=== PATIENT | male | born 1995 ===

== ENCOUNTER 2025-02-05 13:11 | Outpatient (AMB) | payer OTHER, SELFPAY ==
--- NOTE | 2025-02-05 13:20 | A.OFFPC_ITS ---
Vital Signs 02/05/25 13:46 Height 5 ft 10.87 in Weight 195 lb BMI 27.3 BP 104/62 Blood Pressure Location Rt brachial Position Sitting Respiration 16 Pulse 67 Pulse Source Pulse Oximeter Temp 97.9 F Temp Source Temporal Artery Scan Pulse Oximetry (%) 98 Oxygen Delivery Method Room Air Intake Visit Reasons: EST CARE/STOMACH CONCERNS Intake Note: Wendy presents in the office today to establish care. Has stomach concerns. Seat Installer Name: Feliciano Carter [id number] Allergies lactose Allergy (Verified 02/05/25 13:38) Abdominal Pain Tobacco use date assessed: 02/05/25 Dental Screening Dental Screen Date: 02/05/25 Did you have a dental visit in the last 12 months?: Yes Did you have a dental problem in the last 6 months where you did not have access to dental care?: No Was dental information given to patient?: Patient has dentist HPI HPI Comments History of Present Illness Details 30-year-old Occitan speaking male presen to establish care. Relocated from [place] to [facility] 2 years ago. Prior PCP? - [place] established care [place] the [place]. Acute issue(s) - Reports bloating after eating and drin karen water for the past 1 year. Reports occasional burning epigastric pain after eating.He notes diarrhea a few times monthly; otherwise, his bowel movements are regular. He notes occasional abdomi nal pain. No acute symptoms at this time. Past Medical History - Gastric ulcer: was on abx x 6 months u ntil 2-3 months ago Surgical History - Nasal surgery in [place] for difficulty breathing in 2017 Family History - Mom: stomach issues Social History - Former smoker, quit 7 months ago, smok ed 1ppd x 10 years. Does not vape. Drinks glasses of wine 3-4 times year. Smoke cannabis few times yearly - Has been making healthy dietary choice s. Exercises routinely. Generally sleep well Health maintenance - He has never had an eye exam. Referred to ophthalmology for routine eye exam - Last dental visit was 6-7 months ago; Routine dental care encouraged. - Last tetanus vaccine was 5 years ago. Record not currently available - Has not been vaccinated for the flu ; declines vaccination Interpretation by a professional Occitan wool grader ([id number]) via electronic [employer]. 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 1. Little interest or pleasure in doing things: several days 2. Feeling down, depressed, or hopeless: not at all 3. Trouble falling or staying asleep, or sleeping too much: not at all 4. Feeling tired or having little energy: not at all 5. Poor appetite or overeating: not at all 6. Feeling bad about yourself - or that you are a failure or have let yourself or your family down: not at all 7. Trouble concentrating on things, such as reading the newspaper or watching television: not at all 8. Moving or speaking so slowly that other people could have noticed. Or the opposite - being so fidgety or restless that you have been moving around a lot more than usual: not at all 9. Thoughts that you would be better off or of hurting yourself in some way: not at all Total score: 1 Depression Screening Interpretation: Negative Depression Screening Done: Yes 75066 - PHQ-9 Billing: Yes Source: Developed by Drs. Uli Saucedo, Екатерина Chappell, Dean Nelson and colleagues, with an educational cristal from [employer]. Thrive Questionnaire Date Thrive assessed: 02/05/25 I am a: Patient What is your living situation today?: I choose not to answer this question Within the past 12 months, did the food you bought not last and you didn't have the money to get more?: I choose not to answer this question Within the past 12 months, did you worry whether your food would run out before you got money to buy more?: I choose not to answer this question Do you have trouble paying for medicines?: No Do you have trouble getting transportation to medical appointments?: No Do you have trouble paying your heating and electricity bill?: No Do you have trouble taking care of your child, family member or friend?: No Do you have trouble with day-to-day activities such as bathing, preparing meals, shopping, managing finances, etc.?: No Are you currently unemployed and looking for a job?: I choose not to answer this question Are you interested in more education?: No Please select the resources that you would like help with: None Currently or been in a relationship where the following occur: I choose not to answer THRIVE Score: 0 AUDIT C Alcohol Use Questionnaire (AUDIT-C) 1. How often do you have a drink containing alcohol?: Monthly or less 2. How many drinks containing alcohol do you have on a typical day when you are drinking?: 3 or 4 3. How often do you have six or more drinks on one occasion?: Never Total Score: 2 Score Reviewed/Action Taken: Yes JENIFER-7 AMB Questionnaire JENIFER-7 Date JENIFER - 7 assessed: 02/05/25 Feeling nervous, anxious, or on edge: 0 = Not at all Not being able to stop or control worryin = Not at all Worrying too much about different things: 0 = Not at all Trouble relaxin = Not at all Being so restless that it is hard to sit still: 0 = Not at all Becoming easily annoyed or irritable: 0 = Not at all Feeling afraid as if something awful might happen: 0 = Not at all Total JENIFER-7 score (0-4 normal; 5-9 mild; 10-14 moderate; 15-21 severe): 0 Source: Developed by Drs. Uli Saucedo, Екатерина Chappell, Dean Nelson and colleagues, with an educational cristal from [employer]. JENIFER-7 Assessment Billing JENIFER-7 Assessment Tool: JENIFER-7 Assessment 89427 Review of Systems Const Details: Denies chills, Denies fatigue, Denies fever(s), Denies headache(s) and Denies weakness HEENT Denies change in vision, Denies dizziness, Denies headache(s), Denies hearing loss, Denies nasal congestion, Denies sinus pain, Denies sinus pressure and Denies sore throat Card Denies chest pain, Denies lightheadedness, Denies dyspnea and Denies other (palpitations) Resp Denies cough, Denies dyspnea and Denies wheezing GI Reports as per HPI Denies hematuria and Denies dysuria Musc Denies abnormal gait, Denies myalgias, Denies arthralgias, Denies numbness and Denies tingling Skin/Breast Denies rash, Denies unusual bruising and Denies wounds Neuro Denies abnormal gait, Denies dizziness, Denies headache(s), Denies memory loss, Denies numbness, Denies Sensory deficit (Neuro), Denies tingling and Denies weakness Psych Denies anxiety, Denies depression and Denies memory loss Endo Denies cold intolerance, Denies fatigue, Denies heat intolerance, Denies polydipsia and Denies polyuria Ramirez/Lymph Denies easy bleeding and Denies easy bruising Aller/Immun Denies wheezing Physical exam (Primary Care) Vital Signs: Last Vital Signs Temp 97.9 F 02/05/25 13:46 Pulse 67 02/05/25 13:46 Resp 16 02/05/25 13:46 BP 104/62 02/05/25 13:46 Pulse Ox 98 02/05/25 13:46 Oxygen Delivery Method Room Air 02/05/25 13:46 BMI result Body Mass Index 27.3 Tobacco/Smoking Status: Tobacco use Status Tobacco use date assessed 02/05/25 02/05/25 13:49 Patient Tobacco Use Status Former Tobacco user 02/05/25 13:49 e-Cigarette/Vaping Use Former Use 02/05/25 13:49 PHQ-9: PHQ-9 Score PHQ-9: Total score 1 02/05/25 14:03 Depression Screening Interpretation: Negative Thrive Assessment: Date of Thrive Assessment Date Thrive assessed 02/05/25 02/05/25 13:23 Currently or been in a relationship where the following occur: I choose not to answer Const Other: General: no acute distress, well developed, alert and awake Nutritional Appearance: well nourished Orientation/consciousness: patient oriented x3 HENMT Head: Yes normocephalic and Yes atraumatic Ears: hearing grossly normal bilaterally and TM's normal bilaterally General nose exam: Normal external nose present and Normal nares present Mouth: Normal oral and palatal mucosa present and moist mucous membranes Teeth and gingiva: dentition normal Throat: Yes oropharynx normal Eyes Pupils: Equal, round and reactive pupils present and Pupil accommodation reflex normal EOM: EOMs intact bilaterally Neck Neck: Yes normal visual inspection, Yes no lymphadenopathy and Yes trachea midline Thyroid: Thyroid normal Carotids: no bruits Lymphatic: no lymphadenopathy noted Chest Chest palpation & inspection: normal inspection of the chest Resp Effort & Inspection: normal respiratory effort Auscultation: clear to auscultation bilaterally Cardio Rate: regular rate Rhythm: regular rhythm Heart sounds: S1 normal heart sound present, S2 normal heart sound present, no gallops, no murmurs and no rubs Bruits: no abdominal aortic bruits and no carotid bruits GI Palpation (GI): No Abdominal aortic bruit present, Soft to palpation, nontender, No hepatosplenomegaly present and No Rebound tenderness present Auscultation: normal bowel sounds General: Yes no CVA tenderness Back/Spine/Pelvis Back: no CVA tenderness Cervical Spine: cervical ROM normal and No Cervical spine tenderness Thoracic/Lumbar Spine: thoraco-lumbar ROM normal, No pain with thoraco-lumbar ROM, No thoracic spinal tenderness and No lumbar spinal tenderness Skin General: warm and dry. Normal skin color. Normal skin turgor Lesions: no lesions Rashes: no rashes Trauma: no lacerations or abrasions Wounds: no wounds Nails: normal Neuro General: patient oriented x3, gait normal and CN's II-XI intact bilaterally Cranial nerves: Yes Equal, round and reactive pupils present Cognition (Neuro): normal cognition Gait exam (Neuro): Normal gait present Motor exam (neuro): 5/5 motor strength present throughout Sensory Exam: No Sensory deficit (Neuro) Deep tendon reflexes (DTR's): Right patellar reflex intensity grade: 2+ and Left patellar reflex intensity grade: 2+ Extrem General: Yes normal to inspection, No edema and No calf tenderness Psych Appearance: grossly normal Affect: normal affect Attitude: cooperative Thought process: Normal thought process present Coding Level of Care Code New Pt Level 4 (78291) New Pt Prev Care 18-39yr(22489 Diagnoses Normal physical examination, routine Z00.00 Abdominal bloating R14.0 Eye exam, routine Z01.00 Laboratory tests ordered as part of a complete physical exam (CPE) Z00.00 Additional Codes JENIFER-7 Assessment Billing - JENIFER-7 Assessment Tool: JENIFER-7 Assessment 52999 ([id number]) PHQ-9 - 72054 - PHQ-9 Billing: Yes ([id number]) Time Spent (min) 75 Assessment & Plan Assessment & Plan (1) Normal physical examination, routine: Code(s): Z00.00 - Encounter for general adult medical examination without abnormal findings Category: Medical Plan: No significant functional limitation noted. Healthy diet and routine exercise encouraged. Perform lab work and follow-up for telehealth visit in 2-4 for labs review. Return sooner with symptoms or concerns. Verbalized understanding and agreed with the plan. (2) Abdominal bloating: Code(s): R14.0 - Abdominal distension (gaseous) Category: Medical Plan: Reports bloating after eating and drinking water for the past 1 year. Reports occasional burning epigastric pain after eating.He notes diarrhea a few times monthly; otherwise, his bowel movements are regular. He notes occasional abdominal pain. No acute symptoms at this time. Healthy diet, including fiber foods encouraged. Omeprazole 20mg daily ordered; advised to take as prescribed; instructed on the risks, benefits, and potential adverse reactions for the medication. Referred to [facility] Gastroenterology. Follow up with worsening or new symptoms. Verbalized understanding and agreed with the plan. (3) Eye exam, routine: Code(s): Z01.00 - Encounter for examination of eyes and vision without abnormal findings Category: Medical Plan: He has never had an eye exam. Referred to ophthalmology for routine eye exam. (4) Laboratory tests ordered as part of a complete physical exam (CPE): Code(s): Z00.00 - Encounter for general adult medical examination without abnormal findings Category: Medical Plan: Fasting labs ordered as part of a complete physical exam. Advised to fast for at least 10 hours before getting labs drawn. May drink water Verbalized understanding and agreed with treatment plan. Plan Total time for this visit was 75 minutes. This include 55 minutes with patient, doing complete physical exam and chronic disease management/treatment, and 20 minutes reviewing, coordinating plan of care, and documenting. Orders: Orders Complete Blood Count Auto Diff 02/05/25 Z. - Encounter for general adult medical examination without abnormal findings UA CC w/rflx Micro + Cult 02/05/25 Z - Encounter for general adult medical examination without abnormal findings Vitamin D 25-OH Total 02/05/25 Z - Encounter for general adult medical examination without abnormal findings Comprehensive [place]. Panel Fast 02/05/25 Z - Encounter for general adult medical examination without abnormal findings Lipid Panel 02/05/25 Z00.00 - Encounter for general adult medical examination without abnormal findings Microalbumin, Random (w Creat) 02/05/25 Z00.00 - Encounter for general adult medical examination without abnormal findings TSH reflex Free T4 02/05/25 Z00.00 - Encounter for general adult medical examination without abnormal findings Referrals Gastroenterology Referral R14.0 - Abdominal distension (gaseous) Ophthalmology Referral Z01.00 - Encounter for examination of eyes and vision without abnormal findings Medications: New omeprazole 20 mg PO DAILY 30 caps 3RF 30 days
[2025-02-05 13:46] VITALS: BP 104/62; PULSE 67; RESP 16; TEMP 36.6; O2SAT 98; BMI 27.3
== END 2025-02-05 14:48 | disposition home or self-care (01) ==
LOC: HO.HMCFM 13:11
PROVIDERS: PCP Nurse Practitioner Family; Visit Provider Nurse Practitioner Family
DX: Z00.00 Encounter for general adult medical examination without abnormal findings (principal); R14.0 Abdominal distension (gaseous)

== ENCOUNTER → 2025-02-05 13:11 | Outpatient (BNVA) | payer OTHER, SELFPAY | PROVIDERS: PCP Nurse Practitioner Family; Visit Provider Nurse Practitioner Family | DX: Z00.00 Encounter for general adult medical examination without abnormal findings (principal); R14.0 Abdominal distension (gaseous) | CPT/HCPCS: 96127; 99202; 99385 ==

== ENCOUNTER 2025-02-08 12:37 | Outpatient (REF) | payer OTHER, SELFPAY ==
[2025-02-08 14:40] LABS: MANUAL DIFF FLAG NO
[2025-02-08 14:45] LABS: Hematocrit 42.1 % (42.0-52.0); Hemoglobin 14.9 g/dl (14.0-18.0); Imm Gran Abs Auto 0.02 X10*3/uL (0.00-0.03); Imm Gran Pct Auto 0.4 % (0.0-0.4); Lymphocytes Absolute Auto 1.9 X10*3/uL (1.2-4.9); Mean Corpuscular HGB Conc 35.4 g/dl (31.0-36.0); Mean Corpuscular Hemoglobin 28.9 pg (27.0-33.0); Mean Corpuscular Volume 81.7 fL (80.0-98.0); NRBC Abs Auto 0.000 X10*3/uL (0.0-0.012); NRBC Pct Auto 0.0 /100WBC (0.0-0.2); Platelet Count 226 X10*3/uL (160-400); Red Blood Count 5.15 X10*6/uL (4.60-5.80); White Blood Count 4.8 X10*3/uL (4.8-10.8)
[2025-02-08 15:23] LABS: Alanine Aminotransferase 47 U/L (0-40); Albumin Level 4.7 g/dL (3.5-5.0); Alkaline Phosphatase 66 U/L (39-117); Anion Gap 11 (12-20); Aspartate Amino Transferase 31 U/L (5-37); Blood Urea Nitrogen 16 mg/dL (9-16); Calcium 9.0 mg/dL (8.4-10.2); Carbon Dioxide 27 mmol/L (22-29); Chloride 106 mmol/L (96-108); Cholesterol 182 mg/dL (<200); Estimated Glomerular Filt Rate > 60; HDL Cholesterol 43 mg/dL (>40); Potassium 3.9 mmol/L (3.3-5.1); Sodium 140 mmol/L (135-145); Total Protein 6.9 g/dL (6.5-8.0); Triglycerides 68 mg/dL (<150)
[2025-02-08 17:44] LABS: Appearance Urine Clear; Glucose Urine UA Negative (Negative); PH 6.0 (5.0-9.0); Specific Gravity - Urine 1.010 (1.005-1.025)
== END 2025-02-08 12:38 | disposition home or self-care (01) ==
LOC: HO.WFDLDS 12:37
PROVIDERS: Visit Provider Nurse Practitioner Family
DX: Z00.00 Encounter for general adult medical examination without abnormal findings (principal)
CPT/HCPCS: 36415; 80053; 80061; 81003; 82306; 82570; 84443; 85025

== ENCOUNTER 2025-02-23 12:19 | Outpatient (AMB) | payer OTHER, SELFPAY ==
--- NOTE | 2025-02-23 12:22 | A.OFFPC_ITS ---
Vital Signs 02/23/25 12:33 Height 5 ft 10.87 in Weight 197 lb 6 oz BMI 27.6 BP 111/57 L Blood Pressure Location Lt brachial Position Sitting Respiration 16 Pulse 74 Pulse Source Pulse Oximeter Temp 98.0 F Temp Source Oral Pulse Oximetry (%) 98 Oxygen Delivery Method Room Air Intake Visit Reasons: 2-4 wks labs review Intake Note: patient here for 2-4 wks lab review Circuit Tester Required: Yes Circuit Tester Language: Guatemalan Circuit Tester Name: [id number] Allergies lactose Allergy (Verified 02/23/25 12:29) Abdominal Pain Tobacco use date assessed: 02/23/25 Dental Screening Dental Screen Date: 02/23/25 Did you have a dental visit in the last 12 months?: Yes Did you have a dental problem in the last 6 months where you did not have access to dental care?: No Was dental information given to patient?: Patient has dentist HPI HPI Comments History of Present Illness Details 30-year-old Guatemalan speaking male presen ts for recent labs review follow-up. No acute symptoms at this time. Interpretation by professional Guatemalan commercial lending relationship manager via telephone. 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 Current occupational exposures/hazards: No Cognitive needs: No Hearing needs: No Vision needs: No Questionnaire Thrive Questionnaire Date Thrive assessed: 02/05/25 I am a: Patient What is your living situation today?: I choose not to answer this question Within the past 12 months, did the food you bought not last and you didn't have the money to get more?: I choose not to answer this question Within the past 12 months, did you worry whether your food would run out before you got money to buy more?: I choose not to answer this question Do you have trouble paying for medicines?: No Do you have trouble getting transportation to medical appointments?: No Do you have trouble paying your heating and electricity bill?: No Do you have trouble taking care of your child, family member or friend?: No Do you have trouble with day-to-day activities such as bathing, preparing meals, shopping, managing finances, etc.?: No Are you currently unemployed and looking for a job?: I choose not to answer this question Are you interested in more education?: No Please select the resources that you would like help with: None Currently or been in a relationship where the following occur: I choose not to answer THRIVE Score: 0 JENIFER-7 AMB Questionnaire JENIFER-7 Date JENIFER - 7 assessed: 02/05/25 Source: Developed by Drs. Uli Saucedo, Екатерина Chappell, Dean Nelson and colleagues, with an educational cristal from [employer]. Review of Systems Const Details: Const Denies chills, Denies fatigue, Denies fever(s), Denies headache(s) and Denies weakness ENT Denies dizziness and Denies headache(s) Card Denies chest pain, Denies lightheadedness, Denies dyspnea and Denies other (Palpitations) Resp Denies cough, Denies dyspnea, Denies wheezing and Denies other ( shortness of breath) GI Denies abdominal pain, Denies melena, Denies hematochezia, Denies change in bowel habits, Denies dyspepsia and Denies nausea Denies hematuria and Denies dysuria Musc Denies abnormal gait, Denies myalgias, Denies arthralgias, Denies numbness and Denies tingling Skin/Breast Denies rash, Denies unusual bruising and Denies wounds Neuro Denies abnormal gait, Denies dizziness, Denies headache(s), Denies memory loss, Denies numbness, Denies Sensory deficit (Neuro), Denies tingling and Denies weakness Psych Denies anxiety, Denies depression, Denies memory loss Endo Denies cold intolerance, Denies fatigue, Denies heat intolerance, Denies polydipsia and Denies polyuria Aller/Immun Denies wheezing Physical exam (Primary Care) Vital Signs: Last Vital Signs Temp 98.0 F 02/23/25 12:33 Pulse 74 02/23/25 12:33 Resp 16 02/23/25 12:33 BP 111/57 L 02/23/25 12:33 Pulse Ox 98 02/23/25 12:33 Oxygen Delivery Method Room Air 02/23/25 12:33 BMI result Body Mass Index 27.6 Tobacco/Smoking Status: Tobacco use Status Tobacco use date assessed 02/23/25 02/23/25 12:36 Patient Tobacco Use Status Former Tobacco user 02/23/25 12:24 e-Cigarette/Vaping Use Former Use 02/23/25 12:24 Thrive Assessment: Date of Thrive Assessment Date Thrive assessed 02/05/25 02/23/25 12:24 Currently or been in a relationship where the following occur: I choose not to answer Const Other: General: no acute distress and well developed Nutritional Appearance: well nourished Orientation/consciousness: patient oriented x3 HENMT Head: Yes normocephalic and Yes atraumatic Eyes General: appearance normal, both eyes and all related structures Pupils: Equal, round and reactive pupils present EOM: EOMs intact bilaterally Resp Effort & Inspection: normal respiratory effort Auscultation: clear to auscultation bilaterally Cardio Rate: regular rate Rhythm: regular rhythm Heart sounds: S1 normal heart sound present, S2 normal heart sound present, no gallops, no murmurs and no rubs GI Palpation (GI): No Abdominal aortic bruit present, Soft to palpation, nontender, No hepatosplenomegaly present and No Rebound tenderness present Auscultation: normal bowel sounds General: Yes no CVA tenderness Back/Spine/Pelvis Back: no CVA tenderness Cervical Spine: cervical ROM normal and No Cervical spine tenderness Thoracic/Lumbar Spine: thoraco-lumbar ROM normal, No pain with thoraco-lumbar ROM, No thoracic spinal tenderness and No lumbar spinal tenderness Extrem General: Yes normal to inspection, No edema and No calf tenderness Skin General: warm and dry. Normal skin color. Normal skin turgor Neuro General: patient oriented x3, gait normal and no focal neuro deficit Cranial nerves: Yes Equal, round and reactive pupils present Cognition (Neuro): normal cognition Gait exam (Neuro): Normal gait present Sensory Exam: No Sensory deficit (Neuro) Psych Appearance: grossly normal Affect: normal affect Attitude: cooperative Thought process: Normal thought process present Coding Level of Care Code Est Pt Level 3 (50722) Diagnoses Elevated ALT measurement R74.01 Elevated LDL cholesterol level E78.00 Assessment & Plan Assessment & Plan (1) Elevated ALT measurement: Code(s): R74.01 - Elevation of levels of liver transaminase levels Category: Medical Plan: Recent ALT level was slightly elevated, 47. Asymptomatic. With management encouraged. Will recheck liver enzymes annually or as needed. Verbalized understanding and agreed with the plan. (2) Elevated LDL cholesterol level: Code(s): E78.00 - Pure hypercholesterolemia, unspecified Category: Medical Plan: Recent LDL level is slightly elevated, 126. Triglycerides, total cholesterol, and HDL levels are normal. Advised to limit foods high in saturated fat and avoid foods high in trans fat. Routine exercise encouraged. Will monitor lipid panel annually or as needed. Verbalized understanding and agreed with the plan.
[2025-02-23 12:33] VITALS: BP 111/57; PULSE 74; RESP 16; TEMP 36.7; O2SAT 98; BMI 27.6
== END 2025-02-23 12:56 | disposition home or self-care (01) ==
LOC: HO.HMCFM 12:20
PROVIDERS: PCP Nurse Practitioner Family; Visit Provider Nurse Practitioner Family
DX: R74.01 Elevation of levels of liver transaminase levels (principal); E78.00 Pure hypercholesterolemia, unspecified

== ENCOUNTER → 2025-02-23 12:19 | Outpatient (BNVA) | payer OTHER, SELFPAY | PROVIDERS: PCP Nurse Practitioner Family; Visit Provider Nurse Practitioner Family | DX: R74.01 Elevation of levels of liver transaminase levels (principal); E78.00 Pure hypercholesterolemia, unspecified | CPT/HCPCS: 99212 ==

== ENCOUNTER 2025-06-08 11:58 | Outpatient (REF) | payer OTHER, SELFPAY | END 2025-06-08 11:59 | disposition home or self-care (01) | LOC: HO.LNP 11:58 | PROVIDERS: PCP Nurse Practitioner Family; Visit Provider Nurse Practitioner Family | DX: K59.01 Slow transit constipation (principal); K21.9 Gastro-esophageal reflux disease without esophagitis; E55.9 Vitamin D deficiency, unspecified; R74.01 Elevation of levels of liver transaminase levels; R79.89 Other specified abnormal findings of blood chemistry; Z83.3 Family history of diabetes mellitus | CPT/HCPCS: 83013; 99202 ==

== ENCOUNTER 2025-06-08 11:58 | Outpatient (AMB) | payer OTHER, SELFPAY ==
--- NOTE | 2025-06-08 12:01 | A.OFFVIS_ITS ---
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 CC: C/O severe abd bloating, distention, moderate and intermittent epigastric pain. Pt reports hx of ulcer @ age 11 while living in [place]. Pt also reports suspected lactose intolerance, never had testing to confirm. Onset of sx within the last year. 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 Patient was sent to us by his PCP. Patient reports severe abdominal bloating postprandially. Patient reports worse symptoms lately. This is been going on for over a year now. Patient reports he was treated for 2 months for acne last year by dermatology. Two months ago patient had hair transplant and received antibiotic therapy in finished couple weeks ago. Patient was taking omeprazole in the past, however currently not taking anything. Patient denies having any epigastric pain, however occasional burning and reflux depending on what he eats. Patient reports constipation. When has a bowel movement does not feel like he empties completely. Patient denies melena, hematochezia. Following food exacerbating his symptoms: mushrooms, onions, milk, bread. Patient currently is drinking oat milk. Denies dyspepsia, dysphagia or odynophagia. Patient denies any nausea or vomiting. 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 Current occupational exposures/hazards: No Cognitive needs: No Hearing needs: No Vision needs: No Review of Systems Const Denies weight gain and Denies weight loss ENT Reports no additional complaints, Denies dysphagia and Denies odynophagia Card Reports no additional complaints Resp Reports no additional complaints GI Reports abdominal pain, Denies belching, Denies melena, Reports bloating, Denies change in bowel habits, Reports constipation, Denies dysphagia, Denies excessive flatus, Denies dyspepsia, Denies heartburn, Denies diarrhea, Denies loose stools, Denies nausea, Denies odynophagia and Denies vomiting Reports no additional complaints Musc Reports no additional complaints Neuro Reports no additional complaints Psych Reports no additional complaints Endo Reports no additional complaints Physical Exam Const General: healthy appearing, no acute distress and well developed Nutritional Appearance: well nourished and obese Orientation/consciousness: patient oriented x3 Resp Effort & Inspection: normal respiratory effort, able to speak in complete sentences, no tracheal deviation and symmetric chest movement Auscultation: clear to auscultation bilaterally Cardio Rate: regular rate GI Inspection: Yes normal to inspection, No distended and Yes obesity Palpation (GI): Soft to palpation, not firm, nontender and No hepatosplenomegaly present Auscultation: normal bowel sounds General: Yes no CVA tenderness Back/Spine/Pelvis Back: no CVA tenderness Skin General skin exam: elasticity normal, turgor normal and dry skin Neuro General: patient oriented x3 Psych Appearance: grossly normal Mental Status: mental status grossly normal Assessment & Plan Assessment & Plan (1) Elevated ALT measurement: Code(s): R74.01 - Elevation of levels of liver transaminase levels Category: Medical (2) Abdominal bloating: Code(s): R14.0 - Abdominal distension (gaseous) Category: Medical (3) Postprandial epigastric pain: Code(s): R10.13 - Epigastric pain (4) Constipation: Code(s): K59.00 - Constipation, unspecified Category: Medical Qualifiers: Constipation type: slow transit constipation Qualified Code(s): K59.01 - Slow transit constipation Plan Will check for H pylori, check for celiac, malabsorption. Will check lipase, A1c, thyroid study. Will recheck liver enzymes. I will put him on pantoprazole. Avoid dietary triggers and late night snacking. Staying upright for minimum 3 hours after meals discussed with patient. Discussed with patient low FODMAP diet. List of food recommended as well as list of food to avoid patient. Patient was encouraged to increase fluid intake and to promote bowel motility. He will start taking senna in the evening. Transaminitis, will send him for ultrasound with liver elastography. Encouraged to call us if any GI concerning symptoms. Follow-up in 3 months. Patient is agreeable to plan of care and verbalizes understanding of instructions. He was given the opportunity to ask questions and all questions answered. Thank you for allowing me to participate in his care Orders: Orders H Pylori Breath Test Today K21.9 - Gastro-esophageal reflux disease without esophagitis Transglutaminase IgA Today R10.9 - Unspecified abdominal pain TSH reflex Free T4 Today K59.00 - Constipation, unspecified Vitamin D 25-OH (D2 and D3) Today E55.9 - Vitamin D deficiency, unspecified Hemoglobin A1c Today Z83.3 - Family history of diabetes mellitus US abdomen comp w elastography Today R79.89 - Other specified abnormal findings of blood chemistry Lipase Today R10.9 - Unspecified abdominal pain Liver Panel Today R74.01 - Elevation of levels of liver transaminase levels Vitamin B12 and Folate Today R19.7 - Diarrhea, unspecified Medications: New pantoprazole 20 mg PO DAILY 30 tabs 3RF sennosides (Natural Senna Laxative) 17.2 mg (2 x 8.6 mg) PO BEDTIME 60 tabs 1RF constipation K59.00 - Constipation, unspecified Coding Level of Care Code New Pt Level 4 (15880) Diagnoses Elevated ALT measurement R74.01 Abdominal bloating R14.0 Postprandial epigastric pain R10.13 Slow transit constipation K59.01 Constipation type: slow transit constipation Time Spent (min) 45 Comment 35 minutes spent with patient and additional 10 minutes spent reviewing his records
[2025-06-08 12:10] VITALS: BP 136/70; PULSE 80; O2SAT 98; BMI 27.7
== END 2025-06-08 12:46 | disposition home or self-care (01) ==
LOC: HO.HGI 11:59
PROVIDERS: PCP Nurse Practitioner Family; Visit Provider Nurse Practitioner Family
DX: R74.01 Elevation of levels of liver transaminase levels (principal); R14.0 Abdominal distension (gaseous); R10.13 Epigastric pain; K59.01 Slow transit constipation
CPT/HCPCS: 99204